=== PATIENT | female | born 1955 ===

== ENCOUNTER 2023-09-21 10:32 | Emergency (ER) | payer OTHER, SELFPAY ==
--- NOTE | ~2023-09-21 | XR_ITS ---
EXAMINATION: XR HAND/WRIST, RIGHT CLINICAL INFORMATION: Thumb pain with question of dislocation COMPARISON: None TECHNIQUE: PA, lateral, and oblique views of the right hand and wrist. FINDINGS: Degenerative changes are present at the DIP joints and to a lesser extent the PIP joints. No fractures or dislocations are seen. No other abnormality detected. XR/XR hand wrist RT IMPRESSION: Degenerative changes without evidence of an acute osseous injury.
[2023-09-21 10:47] VITALS: BP 129/86; PULSE 100; RESP 18; TEMP 36.7; O2SAT 96; BMI 27.6
--- NOTE | 2023-09-21 11:21 | ED.EXTPRO ---
HPI - Extremity Problem General Chief complaint: Extremity Injury, Upper Stated complaint: Dislocated R thumb Time Seen by Provider: 09/21/23 11:01 Source: patient Mode of arrival: ambulatory Limitations: language barrier History of Present Illness HPI Narrative: 67-year-old female with no significant past medical history presents to the emergency department, with friend, for complaints of right thumb pain and decreased range of motion over the past week. She reports she attempts to move the thumb she feels a crunching/clicking noise. She denies any known trauma or injury to the thumb. She denies any swelling or erythema. Pertinent positives and negatives discussed in HPI Related Data Previous Rx's ?Medication ?Instructions ?Recorded ibuprofen 600 mg tablet 600 mg PO Q8H PRN pain #30 tabs 09/21/23 prednisone 50 mg tablet 50 mg PO DAILY 5 days #5 tabs 09/21/23 Allergies Allergy/AdvReac Type Severity Reaction Status Date / Time No Known Allergies Allergy Verified 09/21/23 10:49 Review of Systems Review of Systems: Yes all other systems are reviewed and are negative [facility] Social History Social History Advance Directives: No Advance Directives Information Provided: Yes Do you have a plan to hurt others: No Plan Physical Exam Vital Signs: Vital Signs: Last Vital Signs Temp 98.3 F 09/21/23 13:03 Pulse 82 09/21/23 13:03 Resp 17 09/21/23 13:03 BP 118/67 09/21/23 13:03 Pulse Ox 98 09/21/23 13:03 O2 Del Method Room Air 09/21/23 13:03 BMI result Body Mass Index 27.6 Nursing notes and vital signs reviewed. GENERAL APPEARANCE: A&0 x 4, generally well appearing, no acute distress HENMT: Normal to inspection, atraumatic, face symmetrical. Normal external ears, nose, and oropharynx clear. EYE: PERRLA, EOM intact, structures appear normal NECK: Supple without stiffness or restricted ROM. HEART: Normal rate and regular rhythm, normal S1/S2, no M/R/G LUNGS: LS CTA, moving air well. Able to speak in complete sentences. No crackles, wheezes, or rhonchi auscultated BACK: No CVAT, no obvious deformity EXTREMITIES: Decreased range of motion of IP joint right thumb. Normal capillary refill. NEUROLOGICAL: Alert and oriented, moving all 4 extremities with equal strength. CN not formally tested but appearing grossly intact. Observed to ambulate with normal gait. Cognition normal SKIN: Warm and dry without any lesions, rash, or visible sores Medications Administered Discontinued Medications Generic Name Dose Route Start Last Admin Trade Name Freq PRN Reason Stop Dose Admin Ibuprofen 600 mg 09/21/23 12:33 09/21/23 12:57 Ibuprofen 600 Mg Tablet PO 09/21/23 12:34 600 mg ONCE ONE Administration Medical Decision Making Medical Decision Making MDM Narrative: Old records reviewed for previous imaging, lab studies, ECGs, and notes. Patient was assessed the emergency department with no acute distress or toxicity noted. XRay right hand completed showing no signs of acute fracture or dislocation, per my interpretation. Radiologist remarks on degenerative arthritis. Ibuprofen and prednisone sent to patient's preferred pharmacy for further management of arthritis. Patient educated to rest and apply heat or ice for comfort and follow up with her primary care provider in addition to hand specialist contact information provided. Patient is safe for discharge at this time with plan for [id number] Tylenol and/or NSAID such as ibuprofen or naproxen for fever/discomfort with dosing as per packaging. HPI, PE, diagnostics, and plan discussed with patient and family with no unanswered questions at this time. Strict return precautions given to return to the emergency department with new, worsening, or concerning emergent symptoms. Recommended to follow-up with there primary care provider in 24-48 hours for further treatment and management. Differential Diagnosis Differential Diagnoses: The differential diagnosis associated with the presentation includes but not limited to fracture, dislocation, strain, sprain, contusion, arthritis, septic joint, effusion, tenosynovitis Independent Interpretation I performed an independent interpretation of an: Plain X-Ray Interpretation: As negative for acute fracture or dislocation Prescription Management Antibiotics were considered, however; no bacterial infection was identified at this time. 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
[2023-09-21 12:06] VITALS: BP 113/72; PULSE 77; RESP 17; O2SAT 97
[2023-09-21 12:43] VITALS: BP 118/67; PULSE 82; RESP 17; TEMP 36.8; O2SAT 98
[2023-09-21] MEDS: Ibuprofen 600 MG TABLET PO (12:57)
[2023-09-21 13:03] VITALS: BP 118/67; PULSE 82; RESP 17; TEMP 36.8; O2SAT 98
== END 2023-09-21 13:03 | disposition home or self-care (01) ==
PROVIDERS: Emergency Provider Emergency Medicine
DX: M19.041 Primary osteoarthritis, right hand (principal); M25.531 Pain in right wrist
CPT/HCPCS: 73110; 73130; 99283